=== PATIENT | female | born 1945 | race Caucasian/White ===

== ENCOUNTER 2018-09-05 16:35 | Emergency (ER) | payer MEDICARE ==
--- NOTE | 2018-09-05 17:38 | RAD ---
LEFT ELBOW FOUR VIEWS: History: Injury. Pain. Comparison: None. FINDINGS: There appears to be a nondisplaced radial head fracture. There is a joint effusion. IMPRESSION: Nondisplaced radial head fracture. Joint effusion. POS: [facility]
--- NOTE | 2018-09-05 17:39 | RAD ---
LEFT FOREARM TWO VIEWS: History: Injury. Pain. FINDINGS: Minimally impacted fracture without displacement involving the radial head. There is associated joint effusion. IMPRESSION: Radial head fracture. POS: [facility]
--- NOTE | 2018-09-05 19:10 | RAD ---
TWO VIEWS LEFT HUMERUS: History: Pain. Injury. Fall. Comparison: None. FINDINGS: Mild bone demineralization. No fracture. IMPRESSION: No definite fracture. If there is pain in the left elbow, dedicated elbow radiograph series is recomm ended. POS: [facility]
== END 2018-09-05 17:59 | disposition home or self-care (01) ==
LOC: SCSER 16:35
DX: S52.125A Nondisplaced fracture of head of left radius, initial encounter for closed fracture (principal); I10 Essential (primary) hypertension; E78.00 Pure hypercholesterolemia, unspecified; E11.9 Type 2 diabetes mellitus without complications; Z79.899 Other long term (current) drug therapy; Z79.84 Long term (current) use of oral hypoglycemic drugs; W19.XXXA Unspecified fall, initial encounter